=== PATIENT | male | born 1990 ===

== ENCOUNTER 2020-10-31 11:38 | Emergency (ER) | payer OTHER, SELFPAY ==
[2020-10-31 11:55] VITALS: BP 130/90; PULSE 82; RESP 15; TEMP 37.2; O2SAT 100
--- NOTE | 2020-10-31 12:37 | ED.URI ---
HPI - URI/Sore Throat General Chief Complaint: Upper Respiratory Infection Stated Complaint: swollen tonsil Time Seen by Provider: 10/31/20 12:01 Source: patient and RN notes reviewed Mode of arrival: ambulatory Limitations: no limitations History of Present Illness HPI Narrative: Patient presents today complaining of swelling to the left tonsil x2 days. Denies any additional symptoms to include fever, cough, congestion, rhinorrhea, ear pain. Pain increases with swallowing and chewing. He has not tried any [id number] treatment prior to arrival. He called his PCPs office and was told that he needed a Covid test before they would see him. He has come in the office today requesting a Covid test and strep test. MD elicited complaint: sore throat Related Data Home Medications Medication Instructions Recorded Confirmed No Home Medications 10/31/20 10/31/20 Allergies Allergy/AdvReac Type Severity Reaction Status Date / Time No Known Allergies Allergy Verified 10/31/20 11:49 Review of Systems Review of Systems: Narrative: CONSTITUTIONAL: Denies body aches, fever, chills, or sweats. EYES: Denies visual changes, redness, or discharge. ENT: Denies rhinorrhea, congestion, or otalgia.+ Swollen left tonsil, sore throat CARDIOVASCULAR: Denies chest pain, palpitations, or edema. RESPIRATORY: Denies cough or dyspnea. GASTROINTESTINAL: Denies abdominal pain, nausea, vomiting, or diarrhea. GENITOURINARY: Denies dysuria or hematuria. SKIN: Denies rash, itching, or wounds. MUSCULOSKELETAL: Denies back pain, joint pain, or myalgia. NEUROLOGIC: Denies headache, numbness, tingling, or weakness. PSYCH: Denies depression or anxiety. [facility] Family History Family History Other Hypertension Social History Social History Smoking status: Smoker, status unknown Alcohol intake: current Gender identity (if verbalized by the patient): Male Comments At time of signature, I have reviewed and agree with nursing past medical, surgical, social and family history unless otherwise noted. Please see nursing chart for further information. There is no relevant family history pertinent to the presenting complaint Exam Narrative: Exam Narrative: GENERAL: Well-appearing, well-nourished, and in no acute distress. HEAD: Normocephalic, atraumatic. EYES: EOMI. No redness or drainage. Conjunctivae normal. ENT: Mucous membranes pink and moist. Nares clear. No rhinorrhea. TMs normal bilaterally. Throat normal. Uvula midline. Patient localizes his tonsil as the swollen bit of gingiva that is overlying his left lower wisdom tooth. This area is tender to palpation. No obvious periapical abscesses noted. Tooth is nontender. Face is not swollen. NECK: Normal AROM. Supple. No lymphadenopathy. CHEST: No respiratory distress. Clear to auscultation. HEART: Regular rate and rhythm. No murmur appreciated. Normal peripheral pulses. EXTREMITIES: Normal range of motion. No edema. SKIN: Warm, dry, no rash. Capillary refill normal. Normal skin turgor. NEURO: No focal deficits. Alert and oriented x3. Gait steady. PSYCH: Normal affect. No signs of depression or anxiety. Course Course Emergency Course: In case this wisdom tooth does become infected, I have given patient a paper prescription with a course of amoxicillin. He is to get this filled anytime in the next week if this area does become more swollen and painful. Patient understands instructions. Vital Signs Vital signs: Vital Signs Temperature 98.9 F 10/31/20 11:55 Pulse Rate 82 10/31/20 11:55 Respiratory Rate 15 10/31/20 11:55 Blood Pressure 130/90 10/31/20 11:55 Pulse Oximetry 100 10/31/20 11:55 Temperature 98.9 F 10/31/20 11:55 Pulse Rate 82 10/31/20 11:55 Respiratory Rate 15 10/31/20 11:55 Blood Pressure 130/90 10/31/20 11:55 P
== END 2020-10-31 12:44 | disposition home or self-care (01) ==
PROVIDERS: Emergency Provider Nurse Practitioner; PCP Family Medicine
DX: K06.1 Gingival enlargement (principal); Z20.822 Contact with and (suspected) exposure to COVID-19
CPT/HCPCS: 87081; 87426; 87880; 99213; C9803; G0463